=== PATIENT | female | born 1975 | race African-American/Black ===

== ENCOUNTER 2017-11-04 12:25 | Emergency (ER) | payer BC ==
[~2017-11-04 12:25] MED LIST: Iopamidol 370 76% 100 ML VIAL ONE
[2017-11-04 13:04] LABS: #Basophils 0.1 thou/uL (0.0-0.2); #Eosinphils 0.1 thou/uL (0.0-0.7); #Lymphocytes 2.2 thou/uL (1.20-3.40); #Monocytes 0.7 thou/uL (0.11-0.59); %Basophils 1.8 % (0.0-1.0); %Eosinophils 1.5 % (0.0-10.0); %Lymphocytes 30.7 % (21.0-51.0); %Monocytes 9.2 % (0.0-10.0); %Neutrophils 56.7 % (42.0-75.0); Hemoglobin 15.1 g/dL (12.0-16.0); Mean Corpuscular HGB CONC 31.8 g/dL (32.0-36.0); Mean Corpuscular Hemoglobin 28.9 pg (27.0-31.0); Mean Corpuscular Volume 90.9 fl (81.0-99.0); Mean Platelet Volume 6.4 fL (7.4-10.4); Platelet Count 299 thou/uL (130-400); RBC Distribution Width 11.8 % (11.5-14.5); Red Blood Cell (RBC) Count 5.23 mill/uL (4.20-5.40); White Blood Cell (WBC) Count 7.1 thou/uL (4.8-10.8)
[2017-11-04 13:12] LABS: BHCG - Serum Negative (NEGATIVE); Pregs Control Background? CLEAR/WHITE (CLR/WHITE); Pregs Control Bar Appear? YES (CONTROL BAR)
[2017-11-04 13:13] LABS: INR-International Normal Ratio 1.1; PTT 32.4 SEC (22.9-36.1); Prothrombin Time 14.4 SEC (12.0-14.7)
[2017-11-04 13:20] LABS: ALT (SGPT) 36 U/L (8-55); AST (SGOT) 20 U/L (5-34); Albumin 4.2 g/dL (3.5-5.0); Alkaline Phosphatase 57 U/L (40-150); Anion Gap 15 mmol/L (10-20); BUN (Urea Nitrogen) 14 mg/dL (7.0-18.7); Bilirubin, Total 0.3 mg/dL (0.2-1.2); CK (CPK) 62 U/L (29-168); Calc. Creatinine Clearance 0 mL/min (70-130); Calcium 10.9 mg/dL (7.8-10.44); Carbon Dioxide 26 mmol/L (22-29); Chloride 103 mmol/L (98-107); Estimated GFR-MDRD 66; Globulin 3.8 g/dL (2.4-3.5); Glucose 130 mg/dL (70-105); Potassium 3.9 mmol/L (3.5-5.1); Sodium 140 mmol/L (136-145)
[2017-11-04 13:24] LABS: CKMB 0.5 ng/mL (0-6.6); Troponin I Less than 0.010 ng/mL (< 0.028)
--- NOTE | 2017-11-04 13:37 | CT ---
CT ANGIOGRAM CHEST WITH 3D RENDERING: HISTORY: A 42-year-old female with a history of intermittent chest pain with shortness of breath. FINDINGS: Bolus timing was very suboptimal, with much more dense contrast media in the aorta rather than in the pulmonary arteries. This lowers the sensitivity of the study. There is no central pulmonary artery thrombus. The more peripheral pulmonary arteries are less than optimally imaged because of this dec reased contrast bolus density. No pleural effusion or pericardial effusion. No mediastinal mass or adenopathy. Unremarkable upper abdomen, other than post cholecystectomy. IMPRESSION: 1. Very suboptimal bolus timing with decreased concentration of contrast within the pulmonary artery tree, particularly relative to the aorta. 2. No evidence for proximal pulmonary artery thrombosis. 3. No other significant abnormality. POS: [facility]
== END 2017-11-04 14:03 | disposition home or self-care (01) ==
LOC: SCSER 12:25
DX: R07.2 Precordial pain (principal); E11.9 Type 2 diabetes mellitus without complications; F41.9 Anxiety disorder, unspecified; F32.9 Major depressive disorder, single episode, unspecified; Z79.01 Long term (current) use of anticoagulants; Z79.84 Long term (current) use of oral hypoglycemic drugs
CPT/HCPCS: 71275; 80053; 82550; 82553; 84484; 84703; 85025; 85610; 85730; 93005

== ENCOUNTER 2018-04-28 11:36 | Outpatient (CLI) | payer BC | END 2018-04-28 11:37 | disposition home or self-care (01) | LOC: BICMAMMO 11:36 | PROVIDERS: ATTEND Obstetrics & Gynecology | DX: Z12.31 Encounter for screening mammogram for malignant neoplasm of breast (principal); N63.20 Unspecified lump in the left breast, unspecified quadrant | CPT/HCPCS: 77063; 77067 ==

== ENCOUNTER 2018-05-02 13:36 | Outpatient (CLI) | payer BC | END 2018-05-02 13:37 | disposition home or self-care (01) | LOC: BICMAMMO 13:36 | PROVIDERS: ATTEND Obstetrics & Gynecology | DX: N63.20 Unspecified lump in the left breast, unspecified quadrant (principal) | CPT/HCPCS: G0279 ==

== ENCOUNTER 2018-07-21 08:36 | Outpatient (CLI) | payer BC | END 2018-07-21 08:37 | disposition home or self-care (01) | LOC: BICRAD 08:36 | PROVIDERS: ATTEND Chiropractor | DX: S33.6XXA Sprain of sacroiliac joint, initial encounter (principal) | CPT/HCPCS: 72100 ==

== ENCOUNTER 2019-11-29 15:22 | Outpatient (CLI) | payer BC ==
--- NOTE | 2019-11-29 16:57 | MMO ---
Bilateral MAMMO Bilat Screen [facility]. CLINICAL HISTORY: Patient is 44 years old and is seen for screening. The patient has no family history of breast cancer. The patient has no personal history of cancer. VIEWS: The views performed were: bilateral craniocaudal with tomosynthesis and bilateral mediolateral oblique with tomosynthesis. FILMS COMPARED: The present examination has been compared to prior imaging studies performed at [facility] on 01/21/2016, 04/12/2017, 04/28/2018 and 05/02/2018. This study has been interpreted with the assistance of computer-aided detection. MAMMOGRAM FINDINGS: There are scattered fibroglandular densities. Finding 1: There are stable benign appearing calcifications seen in both breasts. Finding 2: There are stable benign appearing densities seen in both breasts. There are no suspicious masses, suspicious calcifications, or new areas of architectural distortion. IMPRESSION: THERE IS NO MAMMOGRAPHIC EVIDENCE OF MALIGNANCY. A ROUTINE FOLLOW-UP MAMMOGRAM IN 1 YEAR IS RECOMMENDED. THE RESULTS OF THIS EXAM WERE SENT TO THE PATIENT. ACR BI-RADS Category 2 - Benign finding MAMMOGRAPHY NOTE: 1. A negative mammogram report should not delay a biopsy if a dominant of clinically suspicious mass is present. 2. Approximately 10% to 15% of breast cancers are not detected by mammography. 3. Adenosis and dense breasts may obscure an underlying neoplasm. Reported by: VANDANA IGLESIAS MD Electonically Signed: [id number]
== END 2019-11-29 15:23 | disposition home or self-care (01) ==
LOC: BICMAMMO 15:22
PROVIDERS: ATTEND Obstetrics & Gynecology
DX: Z12.31 Encounter for screening mammogram for malignant neoplasm of breast (principal)
CPT/HCPCS: 77063; 77067

== ENCOUNTER 2019-12-28 07:56 | Outpatient (CLI) | payer BC ==
--- NOTE | 2019-12-28 08:38 | RAD ---
EXAM: XR Thoracic Spine 3 V STANDARD PROVIDED CLINICAL HISTORY: Back pain involving thoracic spine. COMPARISON: None FINDINGS: Upper thoracic spine is not well visualized on lateral projection due to overlying structures, but no fracture or subluxation is appreciated. There is slight right convex curvature of the midthoracic spine. Surgical clips overlie the right upper quadrant. IMPRESSION: No acute findings.
--- NOTE | 2019-12-28 10:00 | RAD ---
LUMBAR SPINE 2 VIEWS: HISTORY: Low back pain. COMPARISON: 07/21/2018. FINDINGS: AP and lateral weightbearing views of the lumbar spine are performed. Very mild disk-osteophytosis a nd facet arthrosis. No acute fracture or dislocation. No significant malalignment. IMPRESSION: Mild lumbar spondylosis and degenerative change. POS: [facility]
== END 2019-12-28 07:57 | disposition home or self-care (01) ==
LOC: BICRAD 07:56
PROVIDERS: ATTEND Internal Medicine Rheumatology
DX: M54.5 Low back pain (principal); M54.6 Pain in thoracic spine; M47.816 Spondylosis without myelopathy or radiculopathy, lumbar region
CPT/HCPCS: 72072; 72100

== ENCOUNTER 2021-08-12 08:13 | Outpatient (CLI) | payer BC | END 2021-08-12 08:14 | disposition home or self-care (01) | LOC: BICMAMMO 08:13 | PROVIDERS: ATTEND Obstetrics & Gynecology | DX: Z12.31 Encounter for screening mammogram for malignant neoplasm of breast (principal) | CPT/HCPCS: 77063; 77067 ==

== ENCOUNTER 2022-08-25 07:48 | Outpatient (CLI) | payer BC | END 2022-08-25 07:49 | disposition home or self-care (01) | LOC: BICMAMMO 07:48 | PROVIDERS: ATTEND Family Medicine | DX: Z12.31 Encounter for screening mammogram for malignant neoplasm of breast (principal); N64.89 Other specified disorders of breast | CPT/HCPCS: 77063; 77067 ==

== ENCOUNTER 2022-09-01 09:58 | Outpatient (CLI) | payer BC | END 2022-09-01 09:59 | disposition home or self-care (01) | LOC: BICMAMMO 09:58 | PROVIDERS: ATTEND Family Medicine | DX: N64.89 Other specified disorders of breast (principal) | CPT/HCPCS: G0279 ==

== ENCOUNTER 2025-04-26 08:56 | Outpatient (CLI) | payer BC | END 2025-04-26 08:57 | disposition home or self-care (01) | LOC: CT 08:56 | PROVIDERS: ATTEND Family Medicine | DX: R10.9 Unspecified abdominal pain (principal); N20.0 Calculus of kidney | CPT/HCPCS: 74176 ==